=== PATIENT | female | born 1935 | race Caucasian/White ===

== ENCOUNTER 2017-10-02 23:54 | Inpatient (IN) | payer MEDICARE, MEDICAID ==
[~2017-10-02] VITALS: Ht 172.7 cm; Wt 78.0 kg
[~2017-10-02 23:54] MED LIST: DOES NOT RECALL MEDS
--- NOTE | 2017-10-02 23:57 | NUR ---
PT TO ER BED 7. PT BIBRA FROM HOME, DAUGHTER STATES "MORE ALTERED THAN USUAL". PT PLACED IN GOWN AND ON SOFTWARE VALIDATION ENGINEER. PT SATING 84% ON NRB AT 15LPM O2. PT RESP 56 RETRACTING. PT RESTAL TEMP 103, HR 104, B/P 106/41. MD AT BEDSIDE. DAUGHTER AT BEDSIDE. DAUGHTER STATES PT HAS BEEN SICK WITH PNEUMONIA X 1 WEEK AND WAS PLACED ON ORAL ANTIBIOTICS. DAUGHTER STATES PT IS DNR.
[2017-10-03] VITALS (20 sets, daily range): BP systolic 93–134; BP diastolic 46–105
--- NOTE | 2017-10-03 00:03 | NUR ---
18G IV TO LAC X 1 ATTEMPT USING ASEPTIC TECH, BLOOD CULT X 2 AND BLOOD DRAWN. IV FLUSHES EASILY WITH NS.
--- NOTE | 2017-10-03 00:10 | NUR ---
16 FR F/C INSERTED USING CERAMIC COATER, 100ML JYOTI URINE OBSERVED. URINE SPECIMEN OBTAINED AND SENT TO THE LAB.
[2017-10-03] MEDS ORDERED: PIPERACILLIN /TAZOBACTAM 3.375 G VIAL IV ONE ×2 (00:17→05:04)
[2017-10-03] MEDS ORDERED: VANCOMYCIN 1 GM VIAL ONE (00:17)
[2017-10-03 00:25] LABS: BASOPHILS % (AUTO) 0.4 % (0.0-2.0); HEMATOCRIT 33 % (33-45); LYMPHOCYTES # (AUTO) 1.3 /CMM (0.8-4.8); LYMPHOCYTES % (AUTO) 24.4 % (20.0-44.0); MEAN CORPUSCULAR HEMOGLOBIN 30 PG (26.0-33.0); MEAN CORPUSCULAR HGB CONC 34 g/dl (31.0-36.0); MEAN CORPUSCULAR VOLUME 88 fL (82-100); MONOCYTES # (AUTO) 0.4 /CMM (0.1-1.30); NEUTROPHILS # (AUTO) 3.6 /CMM (1.8-8.9); NEUTROPHILS % (AUTO) 68.2 % (43.0-81.0); PLATELET COUNT (AUTO) 233 /CMM (150-450); RDW COEFFICIENT OF VARIATION 13.8 (11.5-15.0); RED BLOOD CELL COUNT(AUTO) 3.74 MIL/uL (4.0-5.2); WHITE BLOOD COUNT (AUTO) 5.4 K/uL (4.3-11.0)
[2017-10-03] MEDS ORDERED: ACETAMINOPHEN 650 MG/SUPP.RECT RC ONE ×2 (00:25→00:30)
[2017-10-03 00:27] LABS: APPEARANCE,URINE SL CLOUDY (CLEAR); BILIRUBIN,URINE 1+ (NEGATIVE); BLOOD, URINE 3+ Ery/uL (NEGATIVE); COLOR,URINE YELLOW (YELLOW); KETONES,URINE NEGATIVE (NEGATIVE); LEUKOCYTE ESTERASE ,URINE TRACE (NEGATIVE); NITRITE, URINE NEGATIVE (NEGATIVE); PH,URINE 5.5 (5.0-8.0); PROTEIN,URINE TRACE mg/dl (NEGATIVE); UGLUCOSE NEGATIVE (NEGATIVE); UROBILINOGEN,URINE 0.2 EU/dL (0.2)
[2017-10-03] MEDS ORDERED: VANCOMYCIN 1 GM in IV D5W 250 ML IV ONE ×2 (00:30→01:30)
[2017-10-03] MEDS ORDERED: PIPERACILLIN /TAZOBACTAM 3.375 G in IV D5W 50 ML IV ONE (00:30)
[2017-10-03] MEDS ORDERED: IV NS 0.9% 1,000 ML BAG IV ONE ×2 (00:30→01:30)
[2017-10-03 00:31] LABS: BACTERIA,URINE None seen /HPF (None Seen)
[2017-10-03 00:32] LABS: SQUAMOUS EPITHELIAL CELL,UR Moderate /HPF (None Seen); URINE AMORPHOUS URATE Few /HPF (None Seen)
--- NOTE | 2017-10-03 00:34 | NUR ---
XRAY AT BEDSIDE.
[2017-10-03 00:47] LABS: TROPONIN I 0.548 ng/mL (0.00-0.056)
[2017-10-03 00:50] LABS: ALANINE AMINOTRANSFERASE 84 U/L (12-78); ALBUMIN 2.2 g/dL (3.4-5.0); ALKALINE PHOSPHATASE 68 U/L (46-116); ASPARTATE AMINOTRANSFERASE 389 U/L (15-37); BILIRUBIN,TOTAL 0.6 mg/dL (0.2-1.0); CALCIUM, SERUM 8.1 mg/dL (8.5-10.1); CARBON DIOXIDE 23 mmol/L (21-32); CHLORIDE 120 mmol/L (98-107); CREATININE 2.7 mg/dL (0.6-1.3); GLUCOSE 186 mg/dL (74-106); POTASSIUM 3.6 mmol/L (3.5-5.1); TOTAL PROTEIN, SERUM 7.1 g/dL (6.4-8.2); UREA NITROGEN, BLOOD 75 mg/dL (7-18)
[2017-10-03 00:51] LABS: SODIUM SERUM 156 mmol/L (136-145)
[2017-10-03] MEDS ORDERED: DEXTROSE 50%-WATER 50 ML DISP.SYRIN IV PRN (01:30)
[2017-10-03] MEDS ORDERED: IV NS 0.9% 1,000 ML IV PRN (01:30)
[2017-10-03] MEDS ORDERED: ACETAMINOPHEN 650 MG/20.3 ML UDC NG PRN (01:30)
[2017-10-03] MEDS ORDERED: LORAZEPAM INJ 2 MG/ML VIAL IVP PRN (01:30)
--- NOTE | 2017-10-03 01:32 | NUR ---
MD AT BEDSIDE SPEAKING WITH PT DAUGHTER.
--- NOTE | 2017-10-03 01:45 | NUR ---
PT TBA ICU 260.
--- NOTE | 2017-10-03 02:10 | NUR ---
REPORT GIVEN TO NIDA CASILLAS IN ICU FOR [facility].
[2017-10-03] MEDS ORDERED: INSU100I4 SQ (02:21)
[2017-10-03] MEDS ORDERED: VALS1TAB4 PO (02:21)
[2017-10-03] MEDS ORDERED: AMLO10TA2 PO (02:21)
[2017-10-03] MEDS ORDERED: ZOLP10TA6 PO (02:21)
[2017-10-03] MEDS ORDERED: INSU100V7 SQ (02:21)
[2017-10-03] MEDS ORDERED: ATOR40TA PO (02:21)
[2017-10-03] MEDS ORDERED: QUET200T PO (02:21)
[2017-10-03] MEDS ORDERED: VALS160T2 PO (02:21)
--- NOTE | 2017-10-03 02:25 | NUR ---
RN NOTES 0200 RECEIVED REPORT FROM MIDWIFE PRACTITIONER CAROL 022 PT ARRIVED IN THE UNIT VIA GURNEY, LETHARGIC BUT AROUSABLE TO NAME AND TOUCH. NON-VERBAL. TOLERATED TRANSFER FROM GURNEY TO BED. ON 15L NON-REBREATHER MASK, NO S/S OF RESP DISTRESS. SR ON THE MONITOR, HR 70-80'S. KEEN CATH NOTED. SKIN CHECK DONE WITH MECHANICAL PLANNER, PICS TAKEN AND FILED. LEFT AC 18G AND RIGHT AC 20G BOTH FLUSHED AND PATENT, NO S/S OF INFILTRATION/INFECTION, DRESSINGS CDI. BED LOW AND LOCKED, SIDERAILS UP, CALL LIGHT WITHIN REACH, BED ALARM ON FOR SAFETY. WILL MONITOR
--- NOTE | 2017-10-03 02:30 | NUR ---
PT TRANSPORTED TO ICU 260 ON PANEL EDGE SEALER VIA STRETCHER WITH RN, ACLS PROTOCOL.
[2017-10-03 03:26] LABS: ALANINE AMINOTRANSFERASE 77 U/L (12-78); ALBUMIN 2.1 g/dL (3.4-5.0); ALKALINE PHOSPHATASE 65 U/L (46-116); ASPARTATE AMINOTRANSFERASE 367 U/L (15-37); BILIRUBIN,DIRECT 0.2 mg/dL (0.0-0.2); BILIRUBIN,TOTAL 0.9 mg/dL (0.2-1.0); CALCIUM, SERUM 7.8 mg/dL (8.5-10.1); CARBON DIOXIDE 21 mmol/L (21-32); CHLORIDE 121 mmol/L (98-107); CREATININE 2.7 mg/dL (0.6-1.3); GLUCOSE 213 mg/dL (74-106); POTASSIUM 3.7 mmol/L (3.5-5.1); TOTAL PROTEIN, SERUM 6.7 g/dL (6.4-8.2); UREA NITROGEN, BLOOD 71 mg/dL (7-18)
[2017-10-03 03:28] LABS: SODIUM SERUM 156 mmol/L (136-145)
[2017-10-03 03:34] LABS: TROPONIN I 0.637 ng/mL (0.00-0.056)
[2017-10-03 03:36] LABS: IRON, SERUM 20 ug/dl (50-175); TOTAL IRON BINDING CAPACITY 125 ug/dl (250-450)
--- NOTE | 2017-10-03 03:40 | NUR ---
RN NOTES NOTIFIED DR SANCHEZ ABOUT PATIENT CRITICAL LAB VALUES: SODIUM 156, TROP 0.637, AND LACTIC 3.1, BNP 1655. PER MD, INCREASE NS RATE TO 100MLS/HR. WILL INITIATE ORDER
[2017-10-03 04:33] LABS: ABG BASE EXCESS -1.8 mmol/L; ABG OXYGEN SATURATION 91.3 % (92.0-98.5); ABG PCO2 32.8 mmHg (35.0-45.0); ABG PO2 67.2 mmHg (75.0-100.0); AaDO2 468.8 mmHg; COHb 0.3 % (0.5-1.5); MetHb 0.3 % (0.0-1.5); O2Hb 90.8 % (94.0-97.0); SITE, ABG Right Brachial; VENT MODE, BG 15L NRB
[2017-10-03] MEDS: BLOOD SUGAR DIAGNOSTIC 1 EACH STRIP IN SCH ×4 (05:19→23:13)
[2017-10-03] MEDS: INSULIN REGULAR, HUMAN 100 UNIT/ML 3 ML VIAL SQ PRN ×3 (05:20→18:19)
[2017-10-03] MEDS ORDERED: PIPERACILLIN /TAZOBACTAM 3.375 G in IV D5W 50 ML IV SCH (06:00)
--- NOTE | 2017-10-03 06:35 | NUR ---
RN CLOSING NOTES PT REMAINS STABLE OF THE MOMENT. ALL DUE MEDS GIVEN, AM CARE PROVIDED. WILL ENDORSE K[facility] TO AM RN
--- NOTE | 2017-10-03 07:45 | NUR ---
ICU/RN PT IS IN THE BED ON NON-DONNA MASK AT 15L.SAT O2-97%.V/S STABLE AFEBRILE .NO PAIN REPORTED AT THIS TIME.PT IS LETHARGIC ,RESPONSIVE ON PAIN STIMULATION.NON-VERBAL HAS SEVERE DEMENTIA.PERIFERAL IV INFUSING ORDERED.F/C DRAINING WITH YELLOW URINE.WOUND ON THE LOWER BACK COVERED WITH DRY CLEAN DRESSING.REPOSITION FOR COMFORT.
[2017-10-03] MEDS ORDERED: FEE PK DOSING 1 MIN EA MC ONE (08:10)
[2017-10-03] MEDS: PANTOPRAZOLE 40 MG VIAL IV SCH (08:29)
[2017-10-03] MEDS: ASPIRIN 81 MG TAB.CHEW PO SCH (08:29)
[2017-10-03] MEDS ORDERED: IV 1/2NS 1000 ML 1,000 ML IV ONE (08:30)
--- NOTE | 2017-10-03 08:56 | NUR ---
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 RECOMMENDATIONS MADE FOR SKIN PROTECTION AND WOUND CARE. DISCUSSED WITH NURSING STAFF. PT ON DELIA ISOFLEX LOW AIRLOSS BED. ALL SKIN PROTECTION MEASURES IN PLACE. RECOMMEND SURGICAL CONSULT. WILL SEE PRN. CURRENT AMANDA SCORE IS 15. MD IN AGREEMENT WITH PLAN OF CARE. Addendum: 10/03/17 at 0858 by BEATA RUIZ WNDNU Amended: Links added.
[2017-10-03] MEDS ORDERED: HYDROGEL DRESSING 90 GM TUBE TP PRN (09:00)
--- NOTE | 2017-10-03 09:15 | NUR ---
ICU/RN DUE MEDS ARE GIVEN ORDERED.LABS REVIEW , NOTIFIED.NEW ORDERS RECEIVED.PT IS NPO.UNABLE TO SWALLOW AT THIS TIME .PER FAMILY REQUEST NO NG TUBE.PT IS DNR/DNI CODE STATUS.CONTINUE MONITORING.
[2017-10-03] MEDS: Z GUARD REMEDY 2 OZ OINT TP PRN (10:34)
[2017-10-03] MEDS: HYDROGEL DRESSING 90 GM TUBE TP SCH (10:34)
[2017-10-03] MEDS: Z GUARD REMEDY 2 OZ OINT TP SCH (10:42)
[2017-10-03] MEDS: PIPERACILLIN /TAZOBACTAM 2.25 G in IV D5W 50 ML IV SCH ×2 (11:51→20:13)
--- NOTE | 2017-10-03 12:00 | NUR ---
ICU/RN NG TUBE INSERTED.REPOSITION FOR COMFORT.
[2017-10-03] MEDS ORDERED: ACETAMINOPHEN 650 MG/SUPP.RECT RC PRN (14:30)
[2017-10-03] MEDS: IV 1/2NS 1000 ML 1,000 ML IV PRN ×2 (16:50→20:13)
--- NOTE | 2017-10-03 16:59 | NUR ---
ICU/MARKETING PROFESSOR DRESSING DONE ORDERED. AFB#1 SEND TO THE LAB.PM CARE PROVIDED.REPOSITION FOR COMFORT.
[2017-10-03] MEDS ORDERED: TUBERCULIN,PURIF.PROT.DERIV. 5 TU/0.1 ML VIAL ID ONE (17:00)
--- NOTE | 2017-10-03 19:00 | NUR ---
ICU/RN PT TRANSFERRED TO MED SURGE UNIT IN STABLE CONDITION.V/S STABLE ,AFEBRILE.DUE MEDS ARE GIVEN ORDERED.FAMILY AT BEDSIDE.REPORT GIVEN TO FREEDOM/NIDA.
--- NOTE | 2017-10-03 20:00 | NUR ---
RN INITIAL NOTES 193 Received pt in stable condition with family at bedside. Currently on droplet precaution till TB has been r/o. Respirations are even and unlabored, not in any acute distress noted at this time. on O2 at 6L/min via NC saturating at 94%. no facial grimacing or moaning noted. Peripheral IV access to RAC and LAC. Both patent, dressing kept clean and dry. HOB kept elevated to enhance breathing. Noted w/ wounds to sacral area. Will reposition q2h to prevent further skin injuries and for comfort. Will monitor throughout shift for continuity of care.
--- NOTE | 2017-10-03 23:06 | NUR ---
Patient has moderate pericardial effusion. Informed attending nurse (Walt) and charge nurse.
--- NOTE | 2017-10-03 23:22 | NUR ---
RN NOTES BS 186mmHg. No insulin given d/t pt being npo. No s/sx of hypo/hyperglycemia noted. Will continue to monitor.
--- NOTE | 2017-10-03 23:34 | NUR ---
RN NOTES Notified Dr. Del Toro re: echo results of Moderate pericardial effusion w/ no new orders at this time. Will continue to monitor.
[2017-10-04] MEDS: IV 1/2NS 1000 ML 1,000 ML IV PRN (03:37)
[2017-10-04] MEDS: PIPERACILLIN /TAZOBACTAM 2.25 G in IV D5W 50 ML IV SCH ×3 (05:08→21:05)
[2017-10-04] MEDS: BLOOD SUGAR DIAGNOSTIC 1 EACH STRIP IN SCH ×3 (05:08→17:23)
--- NOTE | 2017-10-04 05:43 | NUR ---
RN NOTES BS 156mmHg. No insulin given. Pt is currently NPO. No s/sx of hypo/hyperglycemia noted. Will continue to monitor.
--- NOTE | 2017-10-04 06:37 | NUR ---
RN CLOSING NOTES All due meds given. Pt remains obtunded. Respirations are even and unlabored, not in any acute distress noted. Currently on O2 @6L/min via NC, saturating at 94%.On droplet precautions till TB has been r/o. No facial grimacing or moaning noted. Peripheral IV to LAC and RAC intact, dressing kept clean and dry. Noted w/ sacral/buttock wound, dressing changed during shift. Wound care team and ID to evaluate. Repositioned pt q2h to prevent further skin injuries and for comfort. Bilateral heels and bony prominences are offloaded. Will endorse to next shift for continuity of care.
[2017-10-04 07:59] LABS: INR 1.02 (0.87-1.13)
[2017-10-04 08:00] VITALS: BP 111/52
[2017-10-04 08:00] LABS: ALANINE AMINOTRANSFERASE 62 U/L (12-78); ALBUMIN 1.5 g/dL (3.4-5.0); ALKALINE PHOSPHATASE 62 U/L (46-116); ASPARTATE AMINOTRANSFERASE 194 U/L (15-37); BILIRUBIN,TOTAL 0.4 mg/dL (0.2-1.0); CALCIUM, SERUM 7.1 mg/dL (8.5-10.1); CARBON DIOXIDE 22 mmol/L (21-32); CHLORIDE 123 mmol/L (98-107); CREATININE 1.3 mg/dL (0.6-1.3); GLUCOSE 151 mg/dL (74-106); MAGNESIUM 2.3 mg/dL (1.8-2.4); PHOSPHORUS 1.9 mg/dL (2.5-4.9); POTASSIUM 2.9 mmol/L (3.5-5.1); TOTAL PROTEIN, SERUM 5.5 g/dL (6.4-8.2); UREA NITROGEN, BLOOD 39 mg/dL (7-18)
[2017-10-04 08:20] LABS: CHOLESTEROL 65 mg/dL (<200); HDL CHOLESTEROL 27 mg/dL (40-60); LDL 28 mg/dL (0-99); TRIGLYCERIDES 85 mg/dL (30-150)
[2017-10-04 08:24] LABS: TROPONIN I 0.133 ng/mL (0.00-0.056)
[2017-10-04 08:25] LABS: CREATINE KINASE MB 1.6 ng/mL (0-3.6)
[2017-10-04 08:30] LABS: SODIUM SERUM 157 mmol/L (136-145)
--- NOTE | 2017-10-04 08:30 | NUR ---
RN NOTES RECEIVED PATIENT IN BED, RESPONSIVE TO PAINFUL STIMULI OPENS EYES, CONTINUED ON 6L OF O2 VIA NC, PT DNR DNI, ADDRESSED DAUGHTERS CONCERNS. BUE AND BLE ELEVATED, TURNED AND REPOSITIONED FOR COMFORT AND PRESSURE RELIEF. IV ACCESS PATENT TO RAC AND LAC PATENT AND INTACT, NO REDNESS OR INFILTRATION NOTED, SAFETY MEASURES IN PLACE. KEPT CLEAN DRY AND COMFORTABLE, KEEN DRAINING YELLOW URINE PATENT AND INTACT WILL CONTINUE TO MONITOR
--- NOTE | 2017-10-04 08:30 | NUR ---
RN NOTES EXPLAINED TO DAUGHTER ABOUT ISOLATION PRECAUTIONS AND USE OF N95 MASK, DAUGHTER STRONGLY REFUSES TO USE ISOLATION PRECAUTIONS WILL CONTINUE TO MONITOR
[2017-10-04 10:00] VITALS: BP 111/52
[2017-10-04] MEDS ORDERED: Potassium Chloride 10 MEQ in IV D5W 50 ML IV SCH (10:00)
[2017-10-04 10:27] LABS: BASOPHILS % (AUTO) 0.2 % (0.0-2.0); EOSINOPHILS # (AUTO) 0.1 /CMM (0.0-0.7); EOSINOPHILS % (AUTO) 1.4 % (0.0-6.0); HEMATOCRIT 23 % (33-45); HEMOGLOBIN 7.8 g/dL (11.5-14.8); LYMPHOCYTES % (AUTO) 14.5 % (20.0-44.0); MEAN CORPUSCULAR HEMOGLOBIN 30 PG (26.0-33.0); MEAN CORPUSCULAR HGB CONC 34 g/dl (31.0-36.0); MEAN CORPUSCULAR VOLUME 88 fL (82-100); MONOCYTES # (AUTO) 0.3 /CMM (0.1-1.30); MONOCYTES % (AUTO) 4.9 % (2.0-12.0); NEUTROPHILS # (AUTO) 5.4 /CMM (1.8-8.9); PLATELET COUNT (AUTO) 141 /CMM (150-450); RDW COEFFICIENT OF VARIATION 13.4 (11.5-15.0); RED BLOOD CELL COUNT(AUTO) 2.57 MIL/uL (4.0-5.2); WHITE BLOOD COUNT (AUTO) 6.8 K/uL (4.3-11.0)
[2017-10-04] MEDS: ASPIRIN 81 MG TAB.CHEW PO SCH (10:37)
[2017-10-04] MEDS: PANTOPRAZOLE 40 MG VIAL IV SCH (10:37)
[2017-10-04] MEDS: Z GUARD REMEDY 2 OZ OINT TP PRN (10:43)
[2017-10-04] MEDS: HYDROGEL DRESSING 90 GM TUBE TP SCH (10:43)
[2017-10-04] MEDS: Z GUARD REMEDY 2 OZ OINT TP SCH (10:43)
--- NOTE | 2017-10-04 11:37 | NUR ---
RN NOTES EXPLAINED TO DAUGHTER ABOUT ISOLATION PRECAUTIONS AND USE OF N95 MASK, DAUGHTER STRONGLY REFUSES TO USE ISOLATION PRECAUTIONS WILL CONTINUE TO MONITOR
--- NOTE | 2017-10-04 11:38 | NUR ---
RN NOTES EXPLAINED TO DAUGHTER ABOUT ISOLATION PRECAUTIONS AND USE OF N95 MASK, DAUGHTER STRONGLY REFUSES TO USE ISOLATION PRECAUTIONS WILL CONTINUE TO MONITOR
[2017-10-04 12:00] VITALS: BP 138/56
[2017-10-04] MEDS ORDERED: POTASSIUM PHOSPHATE MM 7.5 MMOL in IV D5W 100 ML IV SCH (12:00)
--- NOTE | 2017-10-04 12:00 | NUR ---
RN NOTES INSULIN NON ADMINISTERED PT NPO MD AWARE CONTINUE TO MONITOR
[2017-10-04 12:26] LABS: HEMOGLOBIN 8.5 g/dL (11.5-14.8)
[2017-10-04] MEDS: VANCOMYCIN 1 GM in IV D5W 250 ML IV SCH (15:21)
[2017-10-04 16:00] VITALS: BP 109/54
--- NOTE | 2017-10-04 17:00 | NUR ---
RN NOTES INSULIN NON ADMINISTERED PT NPO MD AWARE CONTINUE TO MONITOR
--- NOTE | 2017-10-04 19:30 | NUR ---
RN OPENING NOTES PATIENT IS SLEEPING IN BED, ALERT, OBTUNDED. DAUGHTER PRESENT AT BEDSIDE. NO PAIN OR DISCOMFORT NOTED. RESPIRATIONS EVEN AND UNLABORED. NO SOB NOTED. PATIENT IS ON 02 AT 6L/MIN, TOLERATING WELL. ON DROPLET PRECAUTIONS. SKIN CLEAN AND DRY, OFFLOADING LOWER EXTREMITIES AND BODY PROMINENCES. F/C IS IN PLACE, DRAINING CLEAR AND YELLOW URINE. IV ACCESS ON R AC 20 G AND LAC 18 G PATENT AND INTACT, NO REDNESS OR INFILTRATION NOTED. BED IN LOW AND LOCKED POSITION, SIDE RAILSX2. CALL LIGHT WITHIN EASY REACH. WILL CONTINUE TO MONITOR AND ASSESS DURING THE SHIFT.
--- NOTE | 2017-10-04 19:30 | NUR ---
RN NOTES PATIENT IN BED, RESPONSIVE TO PAINFUL STIMULI OPENS EYES, CONTINUED ON 6L OF O2 VIA NC, PT DNR DNI, ADDRESSED DAUGHTERS CONCERNS. BUE AND BLE ELEVATED, TURNED AND REPOSITIONED FOR COMFORT AND PRESSURE RELIEF. IV ACCESS PATENT TO RAC AND LAC PATENT AND INTACT, NO REDNESS OR INFILTRATION NOTED, SAFETY MEASURES IN PLACE. KEPT CLEAN DRY AND COMFORTABLE, KEEN DRAINING YELLOW URINE PATENT AND INTACT ENDORSED TO NEXT SHIFT FOR CONTINUITY OF CARE
[2017-10-04 20:19] VITALS: BP 130/56
[2017-10-04 22:00] VITALS: BP 130/56
[2017-10-05] MEDS: BLOOD SUGAR DIAGNOSTIC 1 EACH STRIP IN SCH ×5 (00:39→23:23)
[2017-10-05] MEDS: INSULIN REGULAR, HUMAN 100 UNIT/ML 3 ML VIAL SQ PRN ×2 (00:51→19:04)
--- NOTE | 2017-10-05 00:51 | NUR ---
RN NOTES BS 158. PATIENT IS NPO. NO INSULIN ADMINISTERED. WILL CONTINUE TO MONITOR.
[2017-10-05] MEDS ORDERED: VANCOMYCIN 1 GM in IV D5W 250 ML IV SCH (01:00)
[2017-10-05] MEDS: PIPERACILLIN /TAZOBACTAM 2.25 G in IV D5W 50 ML IV SCH ×3 (04:42→20:42)
--- NOTE | 2017-10-05 06:17 | NUR ---
RN NOTES BS 189. PATIENT IS NPO. NO INSULIN ADMINISTERED. CONTINUE TO MONITOR.
--- NOTE | 2017-10-05 06:38 | NUR ---
RN CLOSING NOTES PATIENT IS SLEEPING IN BED, EASY TO AROUSE, OBTUNDED. NO PAIN OR DISCOMFORT NOTED. RESPIRATIONS EVEN AND UNLABORED. NO SOB NOTED. PATIENT IS ON 02 AT 6L/MIN, TOLERATING WELL. ON AIRBORNE PRECAUTIONS. SKIN CLEAN AND DRY, OFFLOADING LOWER EXTREMITIES AND BODY PROMINENCES. F/C IS IN PLACE, DRAINING CLEAR AND YELLOW URINE. IV ACCESS ON R AC 20 G AND LAC 18 G PATENT AND INTACT, NO REDNESS OR INFILTRATION NOTED. ALL NEEDS ARE MET AND MEDICATIONS GIVEN PER MD ORDER. BED IN LOW AND LOCKED POSITION, SIDE RAILSX2. CALL LIGHT WITHIN EASY REACH. WILL ENDORSE TO RN DAY SHIFT FOR [facility].
[2017-10-05 07:57] LABS: BASOPHILS % (AUTO) 0.2 % (0.0-2.0); EOSINOPHILS # (AUTO) 0.1 /CMM (0.0-0.7); EOSINOPHILS % (AUTO) 1.8 % (0.0-6.0); HEMATOCRIT 24 % (33-45); HEMOGLOBIN 8.2 g/dL (11.5-14.8); LYMPHOCYTES # (AUTO) 0.9 /CMM (0.8-4.8); LYMPHOCYTES % (AUTO) 14.2 % (20.0-44.0); MEAN CORPUSCULAR HEMOGLOBIN 31 PG (26.0-33.0); MEAN CORPUSCULAR HGB CONC 35 g/dl (31.0-36.0); MEAN CORPUSCULAR VOLUME 88 fL (82-100); MONOCYTES # (AUTO) 0.3 /CMM (0.1-1.30); MONOCYTES % (AUTO) 5.3 % (2.0-12.0); NEUTROPHILS # (AUTO) 5.1 /CMM (1.8-8.9); NEUTROPHILS % (AUTO) 78.5 % (43.0-81.0); PLATELET COUNT (AUTO) 124 /CMM (150-450); RDW COEFFICIENT OF VARIATION 13.6 (11.5-15.0); RED BLOOD CELL COUNT(AUTO) 2.69 MIL/uL (4.0-5.2); WHITE BLOOD COUNT (AUTO) 6.5 K/uL (4.3-11.0)
[2017-10-05 08:00] VITALS: BP 109/53
[2017-10-05 08:12] LABS: ALANINE AMINOTRANSFERASE 71 U/L (12-78); ALBUMIN 1.5 g/dL (3.4-5.0); ALKALINE PHOSPHATASE 79 U/L (46-116); ASPARTATE AMINOTRANSFERASE 162 U/L (15-37); BILIRUBIN,TOTAL 0.5 mg/dL (0.2-1.0); CALCIUM, SERUM 7.5 mg/dL (8.5-10.1); CARBON DIOXIDE 24 mmol/L (21-32); CHLORIDE 122 mmol/L (98-107); GLUCOSE 196 mg/dL (74-106); MAGNESIUM 2.5 mg/dL (1.8-2.4); PHOSPHORUS 1.7 mg/dL (2.5-4.9); POTASSIUM 3.4 mmol/L (3.5-5.1); TOTAL PROTEIN, SERUM 5.7 g/dL (6.4-8.2); UREA NITROGEN, BLOOD 22 mg/dL (7-18)
[2017-10-05] MEDS: ASPIRIN 81 MG TAB.CHEW PO SCH (08:12)
[2017-10-05] MEDS: PANTOPRAZOLE 40 MG VIAL IV SCH (08:12)
[2017-10-05] MEDS: HYDROGEL DRESSING 90 GM TUBE TP SCH (08:13)
[2017-10-05] MEDS: Z GUARD REMEDY 2 OZ OINT TP SCH (08:13)
[2017-10-05 08:25] LABS: SODIUM SERUM 156 mmol/L (136-145)
[2017-10-05] MEDS ORDERED: POTASSIUM PHOSPHATE MM 15 MMOL in IV D5W 250 ML IV SCH (09:00)
[2017-10-05 10:00] VITALS: BP 109/53
[2017-10-05] MEDS: POTASSIUM PHOSPHATE MM 7.5 MMOL in IV D5W 100 ML IV SCH ×2 (10:36→14:44)
[2017-10-05] MEDS ORDERED: Potassium Phosphate meq 11 MEQ in IV D5W 100 ML IV SCH (11:30)
--- NOTE | 2017-10-05 11:33 | NUR ---
RN NOTES PPD SKIN TEST TO RFA WITH NO INDURATION, REDNESS
--- NOTE | 2017-10-05 12:00 | NUR ---
RN NOTES PT NPO BS 191 NO INSULIN COVERAGE AT THIS TIME AWARE
--- NOTE | 2017-10-05 13:38 | NUR ---
RN NOTES PER DR SHERRI LEE RESPIRATORY ISOLATION, PER PROTOCOL WILL CONTINUE ISOLATION PRECAUTIONS UNTIL RESPIRATORY CULTURE RESULTS RECEIVED
[2017-10-05] MEDS: VANCOMYCIN 1 GM in IV D5W 250 ML IV SCH (15:59)
[2017-10-05 16:00] VITALS: BP 116/56
--- NOTE | 2017-10-05 19:30 | NUR ---
RN OPENING NOTES PATIENT IS SLEEPING IN BED, ALERT AND ORIENTED X1, OPENS EYES. DAUGHTER PRESENT AT BEDSIDE. NO PAIN OR DISCOMFORT NOTED. RESPIRATIONS EVEN AND UNLABORED. NO SOB NOTED. PATIENT IS ON 02 AT 6L/MIN, TOLERATING WELL. ON DROPLET PRECAUTIONS. SKIN CLEAN AND DRY, OFFLOADING LOWER EXTREMITIES AND BODY PROMINENCES. F/C IS IN PLACE, DRAINING CLEAR AND YELLOW URINE. IV ACCESS ON R AC 20 G AND LAC 18 G PATENT AND INTACT, NO REDNESS OR INFILTRATION NOTED. BED IN LOW AND LOCKED POSITION, SIDE RAILSX2. CALL LIGHT WITHIN EASY REACH. WILL CONTINUE TO MONITOR AND ASSESS DURING THE SHIFT.
--- NOTE | 2017-10-05 19:45 | NUR ---
RN NOTES PATIENT IN BED, RESPONSIVE TO PAINFUL STIMULI OPENS EYES, CONTINUED ON 6L OF O2 VIA NC, PT DNR DNI, ADDRESSED DAUGHTERS CONCERNS. BUE AND BLE ELEVATED, TURNED AND REPOSITIONED FOR COMFORT AND PRESSURE RELIEF. IV ACCESS PATENT TO RAC AND LAC PATENT AND INTACT, NO REDNESS OR INFILTRATION NOTED, SAFETY MEASURES IN PLACE. KEPT CLEAN DRY AND COMFORTABLE, KEEN DRAINING YELLOW URINE PATENT AND INTACT, NGT WITH POSITIVE PLACEMENT AND PATENT, TURNED AND REPOSITIONED Q2H AND PRN ENDORSED TO NEXT SHIFT FOR CONTINUITY OF CARE
[2017-10-05 20:00] VITALS: BP 117/43
[2017-10-05] MEDS: Potassium Chloride 40 MEQ in IV D5W 1,000 ML IV PRN (20:35)
[2017-10-05 22:00] VITALS: BP 117/43
--- NOTE | 2017-10-06 00:30 | NUR ---
RN NOTES CALLED DR ALEJANDRA ESTES. ITS OK TO CONTINUE 40 MEQ AND 1/2 NS IV FLUIDS.
--- NOTE | 2017-10-06 00:30 | NUR ---
RN NOTES BS 202. PATIENT IS NPO. NO INSULIN ADMINISTERED. WILL CONTINUE TO MONITOR.
[2017-10-06] MEDS: BLOOD SUGAR DIAGNOSTIC 1 EACH STRIP IN SCH ×4 (02:25→17:24)
[2017-10-06] MEDS: PIPERACILLIN /TAZOBACTAM 2.25 G in IV D5W 50 ML IV SCH ×3 (04:28→21:26)
[2017-10-06] MEDS: INSULIN REGULAR, HUMAN 100 UNIT/ML 3 ML VIAL SQ PRN ×3 (06:03→17:39)
--- NOTE | 2017-10-06 06:04 | NUR ---
RN NOTES BS 198. PATIENT IS NPO. NO INSULIN ADMINISTERED. CONTINUE TO MONITOR.
--- NOTE | 2017-10-06 07:05 | NUR ---
MS RN OPENING NOTES RECEIVED PT FROM NIGHTSHIFT NURSE IN STABLE CONDITION. PT IS A/O X1, OPENS EYES SPONTANEOUSLY. NO SOB OR SIGNS OF DISTRESS NOTED. BREATHING IS EVEN AND UNLABORED. PT IS ON 6L O2 VIA NC AND SATING WELL. NO SIGNS OF PAIN OR DISCOMFORT NOTED. NO ISOLATION PRECAUTIONS AT THIS TIME PER WOOD BOATBUILDER ORDER. KEEN CATHETER INTACT AND DRAINING CLEAR YELLOW URINE. PT IS NPO AT THIS TIME AND CURRENTLY AWAITING SWALLOW EVAL. PER NIGHTSHIFT NURSE, PT REMOVED HER NG TUBE. FOUR ATTEMPTS WERE MADE AT REINSERTION BUT WERE UNSUCCESSFUL. WILL F/U WITH TO THIS REGARD. IV NOTED TO RIGHT AC 20G NOTED TO BE PATENT AND INTACT. NO REDNESS OR SIGNS OF INFILTRATION NOTED. BED IN LOW LOCKED POSITION, SIDE RAILS UP X3, CALL LIGHT WITHIN REACH. WILL CONTINUE TO MONITOR
--- NOTE | 2017-10-06 07:35 | NUR ---
RN CLOSING NOTES PATIENT IS SLEEPING IN BED, EASY TO AROUSE, ALERT AND ORIENTED X1, OPENS EYES. NO PAIN OR DISCOMFORT NOTED. RESPIRATIONS EVEN AND UNLABORED. NO SOB NOTED. PATIENT IS ON 02 AT 6L/MIN, TOLERATING WELL. ON AIRBORNE PRECAUTIONS. SKIN CLEAN AND DRY, OFFLOADING LOWER EXTREMITIES AND BODY PROMINENCES. F/C IS IN PLACE, DRAINING CLEAR AND YELLOW URINE. IV ACCESS ON LAC 18 G PATENT AND INTACT, NO REDNESS OR INFILTRATION NOTED. PATIENT PULLED OUT NG TUBE. TRIED TO REINSERT IT. PATIENT RESISTED. ALL NEEDS ARE MET AND MEDICATIONS GIVEN PER MD ORDER. BED IN LOW AND LOCKED POSITION, SIDE RAILSX2. CALL LIGHT WITHIN EASY REACH. WILL ENDORSE TO RN DAY SHIFT FOR [facility].
[2017-10-06 08:00] VITALS: BP 128/61
[2017-10-06 08:13] LABS: CALCIUM, SERUM 7.4 mg/dL (8.5-10.1); CARBON DIOXIDE 23 mmol/L (21-32); CHLORIDE 119 mmol/L (98-107); CREATININE 0.9 mg/dL (0.6-1.3); GLUCOSE 223 mg/dL (74-106); PHOSPHORUS 2.1 mg/dL (2.5-4.9); POTASSIUM 3.8 mmol/L (3.5-5.1); SODIUM SERUM 152 mmol/L (136-145); UREA NITROGEN, BLOOD 15 mg/dL (7-18)
[2017-10-06] MEDS: ASPIRIN 81 MG TAB.CHEW PO SCH (09:00)
[2017-10-06] MEDS: Z GUARD REMEDY 2 OZ OINT TP SCH (09:16)
[2017-10-06] MEDS: PANTOPRAZOLE 40 MG VIAL IV SCH (09:16)
--- NOTE | 2017-10-06 09:50 | NUR ---
MS RN NOTES DR. GARZA MADE AWARE THAT PT IS WITHOUT NG TUBE AND FAILED SWALLOW EVAL. PER MD "HOLD OFF REINSERTION FOR NG AND I WILL RECONCILE HER MEDICATIONS TO IV".
[2017-10-06 10:00] VITALS: BP 128/61
[2017-10-06] MEDS: Potassium Chloride 40 MEQ in IV D5W 1,000 ML IV PRN (13:29)
[2017-10-06] MEDS: FUROSEMIDE 20 MG/2 ML VIAL IV SCH ×2 (13:29→17:27)
[2017-10-06] MEDS ORDERED: Sodium Phosphate 15 MMOL in IV D5W 250 ML IV ONE (14:00)
[2017-10-06 16:00] VITALS: BP 113/51
--- NOTE | 2017-10-06 19:08 | NUR ---
MS RN CLOSING NOTES PT REMAINS STABLE. ALL NEEDS MET DURING SHIFT AND ORDERS CARRIED OUT ACCORDINGLY. ALL DUE MEDS GIVE. WOUND AND SKIN CARE RENDERED ORDERED. KEEN CATHETER CARE PROVIDED. NO ACUTE CHANGES IN CONDITION THROUGHOUT SHIFT. PT WAS REPOSITIONED AND TURNED PER PROTOCOL. WILL ENDORSE TO NIGHTSHIFT NURSE FOR KV[facility]
[2017-10-06] MEDS: VANCOMYCIN 1 GM in IV D5W 250 ML IV SCH (19:17)
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
[2017-10-06 20:00] VITALS: BP 123/53
[2017-10-07] MEDS: BLOOD SUGAR DIAGNOSTIC 1 EACH STRIP IN SCH ×4 (00:04→17:36)
[2017-10-07] MEDS: INSULIN REGULAR, HUMAN 100 UNIT/ML 3 ML VIAL SQ PRN ×4 (00:10→17:46)
[2017-10-07] MEDS: PIPERACILLIN /TAZOBACTAM 2.25 G in IV D5W 50 ML IV SCH ×3 (05:03→21:10)
[2017-10-07] MEDS: VANCOMYCIN 1 GM in IV D5W 250 ML IV SCH (05:44)
--- NOTE | 2017-10-07 06:50 | NUR ---
MS RN NOTES AWAKE & ALERT. NOT IN ANY DISTRESS. NO SOB NOTED. DENIES ANY PAIN OR DISCOMFORT AT THIS TIME. WITH IVF INFUSING WELL. AM CARE DONE. MONITORED ACCORDINGLY. CALL LIGHT WITHIN REACH. BED IN LOWEST POSITION. SR UP X 3 WITH BED ALARM ON FOR SAFETY. WILL ENDORSE TO NEXT SHIFT.
--- NOTE | 2017-10-07 07:00 | NUR ---
MS RN NOTES CLEMENT FROM INFECTION CONTROL CALLED. D/C TB ISOLATION PER INFECTION CONTROL. REPORT GIVEN TO AARON ALVA
--- NOTE | 2017-10-07 07:06 | NUR ---
MS RN OPENING NOTES RECEIVED PT FROM NIGHTSHIFT NURSE IN STABLE CONDITION. PT IS A/O X1, OPENS EYES SPONTANEOUSLY AND MOUTHS WORDS. NO SOB OR SIGNS OF DISTRESS NOTED. BREATHING IS EVEN AND UNLABORED. PT IS ON 6L O2 VIA NC AND SATING WELL. NO SIGNS OF PAIN OR DISCOMFORT NOTED. IV NOTED TO RIGHT HAND 22G NOTED TO BE PATENT AND INTACT. NO REDNESS OR SIGNS OF INFILTRATION NOTED. BED IN LOW LOCKED POSITION, SIDE RAILS UP X3, CALL LIGHT WITHIN REACH. DAUGHTER AT BEDSIDE. WILL CONTINUE TO MONITOR
[2017-10-07 08:00] VITALS: BP 108/57
[2017-10-07 08:04] LABS: CALCIUM, SERUM 7.2 mg/dL (8.5-10.1); CARBON DIOXIDE 29 mmol/L (21-32); CHLORIDE 110 mmol/L (98-107); CREATININE 0.9 mg/dL (0.6-1.3); GLUCOSE 327 mg/dL (74-106); POTASSIUM 3.3 mmol/L (3.5-5.1); SODIUM SERUM 145 mmol/L (136-145); UREA NITROGEN, BLOOD 12 mg/dL (7-18)
[2017-10-07] MEDS: ASPIRIN 81 MG TAB.CHEW PO SCH (09:29)
[2017-10-07] MEDS: PANTOPRAZOLE 40 MG VIAL IV SCH (09:29)
[2017-10-07] MEDS: FUROSEMIDE 20 MG/2 ML VIAL IV SCH ×2 (09:29→16:39)
[2017-10-07] MEDS: Z GUARD REMEDY 2 OZ OINT TP SCH (09:29)
[2017-10-07 10:00] VITALS: BP 108/57
[2017-10-07] MEDS ORDERED: POTASSIUM CHLORIDE 20 MEQ TAB.PRT.SR PO SCH ×2 (11:00→12:30)
[2017-10-07] MEDS ORDERED: ALLA266C2 TP (13:46)
[2017-10-07] MEDS ORDERED: AMOX-430 PO (13:46)
[2017-10-07 16:00] VITALS: BP 100/46
[2017-10-07] MEDS ORDERED: K PHOS NEUTRAL 250 MG TABLET PO ONE (16:30)
--- NOTE | 2017-10-07 16:39 | NUR ---
MS RN NOTES DISCHARGE HELD BY DR. PRINGLE DUE TO LOW BP. PT'S DAUGHTER ALSO STATES THAT SHE IS UNCOMFORTABLE TAKING PT HOME TONIGHT AND WILL PREFER TO TAKE THE PT HOME IN THE MORNING ONCE EVERYTHING FOR HER HOME HEALTH IS ARRANGED. PER DR PRINGLE "HOLD DIURETICS AND TAKE LYING AND SITTING ORTHO BP". WILL CARRY OUT ORDER
--- NOTE | 2017-10-07 16:47 | NUR ---
MS RN NOTES OTHO BP'S WERE TAKEN AND REVIEWED WITH DR. PRINGLE. JN LEVY "JUST CONTINUE TO MONITOR BP AND HOLD DIURETICS".
[2017-10-07 16:55] VITALS: BP_SYST 106; BP_SYST 95; BP_DIAS 40; BP_DIAS 50
--- NOTE | 2017-10-07 19:25 | NUR ---
MS/RN OPENING NOTES PT RECEIVED WITH EYES CLOSED. EASILY AROUSABLE, OPENS EYES AND SMILES. ON 4L O2 VIA NC, BREATHING EVEN AND UNLABORED. NO S/S OF PAIN, SOB OR DISTRESS NOTED. KEEN IN PLACE AND DRAINING TO GRAVITY. IV TO RIGHT HAND PATENT AND INTACT. BED IN LOW/LOCKED POSITION WITH CALL LIGHT IN REACH. SIDE RAILS UPX2. WILL CONTINUE TO MONITOR
[2017-10-07 20:00] VITALS: BP 110/47
[2017-10-08] MEDS ORDERED: VANCOMYCIN 1 GM in IV D5W 250 ML IV SCH ×2
[2017-10-08] MEDS: BLOOD SUGAR DIAGNOSTIC 1 EACH STRIP IN SCH ×3 (01:04→12:51)
[2017-10-08] MEDS: INSULIN REGULAR, HUMAN 100 UNIT/ML 3 ML VIAL SQ PRN ×3 (01:12→12:57)
[2017-10-08] MEDS: PIPERACILLIN /TAZOBACTAM 2.25 G in IV D5W 50 ML IV SCH ×2 (05:20→12:51)
--- NOTE | 2017-10-08 06:17 | NUR ---
MS/RN NOTES IV INFILTRATED. NEW IV INSERTED TO LAC #22. IV ABX RESTARTED.
--- NOTE | 2017-10-08 07:01 | NUR ---
MS/RN CLOSING NOTES PT RESTING COMFORTABLY IN BED WITH EYES CLOSED. OPENS EYES TO LIGHT TOUCH. ON 4L O2 VIA NC, BREATHING EVEN AND UNLABORED. NO S/S OF SOB OR DISTRESS. KEEN IN PLACE AND DRAINING TO GRAVITY. IV TO LAC PATENT AND INTACT. NO SIGNIFICANT CHANGES OVERNIGHT. TURNED/REPOSITIONED PT Q2H AND HEELS OFFLOADED. WOUND CARE PROVIDED ORDERED. BED REMAINS IN LOW/LOCKED POSITION WITH CALL LIGHT IN REACH AND SIDE RAILS UPX2. WILL ENDORSE TO DAY SHIFT RN KVNG.
--- NOTE | 2017-10-08 07:50 | NUR ---
MS RN RECEIVED ON BED, AWAKE,,ORIENTED X1, NOT IN ANY FORM OF DISTRESS, RESPIRATIONS EVEN AND UNLABORED,NO SOB NOTED, LUNGS ARE DIMINISHED, ABDOMEN SOFT,POSITIVE BOWEL SOUNDS,NO S/S OF PAIN ,DAUGHTER AT BEDSIDE, WILL MONITOR PATIENT'S CONDITION.
[2017-10-08 08:00] VITALS: BP 118/52
[2017-10-08 08:50] LABS: CALCIUM, SERUM 7.9 mg/dL (8.5-10.1); CARBON DIOXIDE 27 mmol/L (21-32); CHLORIDE 109 mmol/L (98-107); GLUCOSE 286 mg/dL (74-106); PHOSPHORUS 2.3 mg/dL (2.5-4.9); POTASSIUM 3.2 mmol/L (3.5-5.1); SODIUM SERUM 144 mmol/L (136-145); UREA NITROGEN, BLOOD 14 mg/dL (7-18)
[2017-10-08] MEDS: FUROSEMIDE 20 MG/2 ML VIAL IV SCH (09:00)
--- NOTE | 2017-10-08 09:30 | NUR ---
MS ALVA BREAKFAST SERVED,DUE MEDS GIVEN,TOLERATED WELL.
[2017-10-08] MEDS: PANTOPRAZOLE 40 MG VIAL IV SCH (09:38)
[2017-10-08] MEDS: ASPIRIN 81 MG TAB.CHEW PO SCH (09:38)
[2017-10-08 10:00] VITALS: BP 115/55
--- NOTE | 2017-10-08 10:00 | NUR ---
MS RN WAS SEEN BY DR. PRINGLE,WITH ORDER TO GO HOME TODAY.
[2017-10-08] MEDS ORDERED: POTASSIUM CHLORIDE 20 MEQ TAB.PRT.SR PO SCH (10:30)
[2017-10-08] MEDS: Z GUARD REMEDY 2 OZ OINT TP SCH (10:41)
[2017-10-08] MEDS ORDERED: NEUTRA PHOS 1 POWD.PACKET NG ONE (11:30)
--- NOTE | 2017-10-08 13:30 | NUR ---
MS RN PATIENT WENT HOME VIA AMBULANCE,NO DISTRESS,NOTED.
== END 2017-10-08 13:55 | disposition home health service (06) | DRG 871 ==
LOC: ER 23:55 → ICU 10-03 01:29 → MED 10-03 19:02
PROVIDERS: ADMIT Internal Medicine; ATTEND Internal Medicine
DX: A41.9 Sepsis, unspecified organism (principal); I21.A1 Myocardial infarction type 2; J69.0 Pneumonitis due to inhalation of food and vomit; G93.1 Anoxic brain damage, not elsewhere classified; J15.20 Pneumonia due to staphylococcus, unspecified; J15.6 Pneumonia due to other Gram-negative bacteria; J96.01 Acute respiratory failure with hypoxia; L89.152 Pressure ulcer of sacral region, stage 2; K72.00 Acute and subacute hepatic failure without coma; N17.0 Acute kidney failure with tubular necrosis; G93.41 Metabolic encephalopathy; L89.313 Pressure ulcer of right buttock, stage 3; R53.2 Functional quadriplegia; G93.40 Encephalopathy, unspecified; I13.0 Hypertensive heart and chronic kidney disease with heart failure and stage 1 through stage 4 chronic kidney disease, or unspecified chronic kidney disease; N18.4 Chronic kidney disease, stage 4 (severe); D68.59 Other primary thrombophilia; E87.0 Hyperosmolality and hypernatremia; C34.90 Malignant neoplasm of unspecified part of unspecified bronchus or lung; E11.22 Type 2 diabetes mellitus with diabetic chronic kidney disease; R65.20 Severe sepsis without septic shock; D63.8 Anemia in other chronic diseases classified elsewhere; Z66 Do not resuscitate; F03.90 Unspecified dementia, unspecified severity, without behavioral disturbance, psychotic disturbance, mood disturbance, and anxiety; Z79.4 Long term (current) use of insulin; Z79.899 Other long term (current) drug therapy; Z51.5 Encounter for palliative care; Z87.891 Personal history of nicotine dependence; Z74.01 Bed confinement status; I50.9 Heart failure, unspecified; J11.1 Influenza due to unidentified influenza virus with other respiratory manifestations; E86.0 Dehydration; L89.621 Pressure ulcer of left heel, stage 1; L89.611 Pressure ulcer of right heel, stage 1; M62.472 Contracture of muscle, left ankle and foot; M62.471 Contracture of muscle, right ankle and foot; I25.2 Old myocardial infarction
CPT/HCPCS: 36415; 36600; 70450-TC; 71045-TC; 71250-TC; 76705-TC; 80048-TC; 80053-TC; 80061-TC; 80076-TC; 80202-TC; 81000-TC; 82553-TC; 82803-TC; 82962-TC; 83540-TC; 83605-TC; 83735-TC; 83880; 84100-TC; 84295-TC; 84484-TC; 85025-TC; 85027-TC; 85610-TC; 85730-TC; 86580-TC; 86803; 87040-TC; 87070-TC; 87081-TC; 87086-TC; 87116; 87206; 87400; 92526; 92611-TC; 93307-TC; 94799-TC; A4606; A6248; A6403; A9563; C9113; J1815; J1940; J2543; J3370; J3480; J3490; J7040; J7060; J7070; Z7610